=== PATIENT | male | born 1980 | race Caucasian/White ===

== ENCOUNTER 2020-06-09 21:57 | Emergency (ER) | payer OTHER ==
[~2020-06-09] VITALS: Ht 185.4 cm; Wt 121.8 kg
[~2020-06-09 21:57] MED LIST: ACET-66 PO; VICOT PO
[2020-06-09] MEDS ORDERED: ACETAMINOPHEN 500 MG TABLET PO ONE (23:15)
[2020-06-09 23:36] LABS: BASOPHILS % (AUTO) 1.1 % (0.0-2.0); EOSINOPHILS % (AUTO) 2.7 % (1.0-6.0); HEMOGLOBIN 16.4 g/dL (13.5-17.5); LYMPHOCYTES # (AUTO) 3.8 K/uL (1.0-4.8); LYMPHOCYTES % (AUTO) 37.1 % (22.0-44.0); MEAN CORPUSCULAR HEMOGLOBIN 28.8 pg (26.0-34.0); MEAN CORPUSCULAR HGB CONC 34.2 G/dL (31.0-37.0); MEAN CORPUSCULAR VOLUME 84 fL (80-100); MONOCYTES # (AUTO) 0.7 K/uL (0.1-1.0); MONOCYTES % (AUTO) 7.2 % (2.0-9.0); NEUTROPHILS # (AUTO) 5.3 K/uL (1.8-7.7); NEUTROPHILS % (AUTO) 51.9 % (40.0-70.0); PLATELET COUNT (AUTO) 373 K/uL (150-450); RED BLOOD CELL COUNT(AUTO) 5.69 MIL/uL (4.50-5.90); RED CELL DISTRIBUTION WIDTH 12.6 % (11.5-14.5)
[2020-06-09 23:53] LABS: ANION GAP 9 mmol/L (8-16); CARBON DIOXIDE 28 mmol/L (22-29); CHLORIDE 101 mmol/L (98-107); CREATININE 0.77 mg/dL (0.60-1.30); GLOMERULAR FILTR. RATE CALC > 60 mL/min (>60); GLUCOSE,RANDOM 129 mg/dL (70-110); POTASSIUM 4.1 mmol/L (3.5-5.1); SODIUM SERUM 138 mmol/L (136-145); UREA NITROGEN, BLOOD 11 mg/dL (7-18)
[2020-06-09 23:59] LABS: ALANINE AMINOTRANSFERASE 35 U/L (12-78); ALBUMIN 4.1 g/dL (3.4-5.0); ALKALINE PHOSPHATASE 98 U/L (46-116); ASPARTATE AMINOTRANSFERASE 21 U/L (15-37); BILIRUBIN,TOTAL 0.4 mg/dL (0.1-1.0); TOTAL PROTEIN, SERUM 7.6 g/dL (6.4-8.2)
[2020-06-10] MEDS ORDERED: IOVERSOL 350 MG/ML 100 ML VIAL ONE (03:47)
[2020-06-10] MEDS ORDERED: SODIUM CHLORIDE 0.9% 100 ML ONE (03:47)
[2020-06-10 05:15] VITALS: BP 132/75
== END 2020-06-10 05:39 | disposition home or self-care (01) ==
LOC: EMS 22:01
DX: R07.9 Chest pain, unspecified (principal); R06.02 Shortness of breath; T63.441A Toxic effect of venom of bees, accidental (unintentional), initial encounter; Y92.89 Other specified places as the place of occurrence of the external cause
CPT/HCPCS: 36415; 70491; 71045; 76536; 80053; 84484; 85025; 93005; 99285; J7050; Q9967

== ENCOUNTER 2021-12-28 14:19 | Emergency (ER) | payer OTHER ==
[~2021-12-28] VITALS: Ht 185.4 cm; Wt 100.0 kg
[2021-12-28] MEDS ORDERED: IBUPROFEN 600 MG TABLET PO ONE (15:15)
[2021-12-28] MEDS ORDERED: PERTUSS(ACELL),DIPH,TET VAC/PF 0.5 ML SYRINGE IM. ONE (15:15)
[2021-12-28] MEDS ORDERED: OxyCODONE HCL/ACETAMINOPHEN 5-325 MG TABLET PO ONE (16:15)
[2021-12-28] MEDS ORDERED: LIDOCAINE 1% 20 ML VIAL ID ONE (16:15)
[2021-12-28 17:23] VITALS: BP 142/79
== END 2021-12-28 17:24 | disposition home or self-care (01) ==
LOC: EMS 14:19
DX: S61.412A Laceration without foreign body of left hand, initial encounter (principal); W45.8XXA Other foreign body or object entering through skin, initial encounter; Y93.89 Activity, other specified; Y92.89 Other specified places as the place of occurrence of the external cause; Y99.8 Other external cause status
CPT/HCPCS: 99283; 73130; 90715; 90471; 12002; J3490

== ENCOUNTER 2022-01-05 13:10 | Emergency (ER) | payer OTHER ==
[~2022-01-05] VITALS: Ht 185.4 cm; Wt 102.3 kg
[2022-01-05] MEDS ORDERED: LISI-892 PO (13:28)
[2022-01-05] MEDS ORDERED: HYDROCODONE/ACETAMINOPHEN 5-325 MG TABLET PO ONE (14:00)
[2022-01-05] MEDS ORDERED: CEPH-558 PO (15:21)
[2022-01-05 15:32] VITALS: BP 154/98
== END 2022-01-05 15:37 | disposition home or self-care (01) ==
LOC: EMS 13:12
DX: S61.412A Laceration without foreign body of left hand, initial encounter (principal); X58.XXXA Exposure to other specified factors, initial encounter; Y93.89 Activity, other specified; Y92.89 Other specified places as the place of occurrence of the external cause; Y99.8 Other external cause status
CPT/HCPCS: 99283